=== PATIENT | male | born 1985 | race Caucasian/White ===

== ENCOUNTER 2017-08-25 07:48 | Emergency (ER) | payer MEDICAID ==
[~2017-08-25] VITALS: Ht 182.9 cm; Wt 69.0 kg
[2017-08-25] MEDS ORDERED: penicillin V potassium 500mg tablet PO ONE (08:30)
[2017-08-25] MEDS ORDERED: HYDROcodone/acetaminophen 10/325mg tab PO ONE (08:30)
[2017-08-25] MEDS ORDERED: ibuprofen tablet 400 MG TABLET PO ONE (08:30)
[2017-08-25 08:34] VITALS: BP 164/105
[2017-08-25] MEDS ORDERED: ACET1TAB12 PO (08:45)
[2017-08-25] MEDS ORDERED: PENI500T2 PO (08:45)
== END 2017-08-25 08:51 | disposition home or self-care (01) ==
LOC: ER 07:49
DX: K04.7 Periapical abscess without sinus (principal); F17.200 Nicotine dependence, unspecified, uncomplicated
CPT/HCPCS: 99284

== ENCOUNTER 2020-03-23 13:03 | Emergency (ER) | payer MEDICAID ==
[~2020-03-23] VITALS: Ht 180.3 cm; Wt 77.3 kg
[~2020-03-23 13:03] MED LIST: ACET1TAB12 PO
[2020-03-23] MEDS ORDERED: IBUP-1984 PO (16:02)
[2020-03-23 16:20] VITALS: BP 142/80
== END 2020-03-23 16:23 | disposition home or self-care (01) ==
LOC: ER 13:03
DX: M79.631 Pain in right forearm (principal); Z79.899 Other long term (current) drug therapy
CPT/HCPCS: 29125; 73110; 99283